=== PATIENT | male | born 1970 | race Caucasian/White ===

== ENCOUNTER → 2019-06-04 | Outpatient (CLI) | payer OTHER ==
--- NOTE | 2019-06-05 08:52 | RAD ---
EXAM: LEFT HAND 3 VIEWS. HISTORY: Soft tissue mass. COMPARISON: None. FINDINGS: There is a soft tissue mass along the thenar eminence. There are small internal calcifications, without definitive phleboliths. There is no evidence of osseous invasion or remodeling. No fractures are identified. Alignment is maintained. 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 It is mild at the second and third metacarpophalangeal joints. IMPRESSION: 1. The thenar soft tissue mass contains calcifications. This favors a hemangioma, but is indeterminate. MRI with and without contrast could further evaluate if the diagnosis remains unclear. Electronically signed by: Jeanna Almanza MD (06/05/2019 8:49 AM) [facility]
== END | disposition home or self-care (01) ==
LOC: DXRAD 16:39
PROVIDERS: ATTEND Orthopaedic Surgery
DX: D49.2 Neoplasm of unspecified behavior of bone, soft tissue, and skin (principal); M19.042 Primary osteoarthritis, left hand
CPT/HCPCS: 73130